=== PATIENT | female | born 1990 | race Caucasian/White ===

== ENCOUNTER 2021-09-26 15:06 | Emergency (ER) | payer MEDICAID ==
[~2021-09-26] VITALS: Ht 172.7 cm; Wt 90.7 kg
[2021-09-26 15:30] VITALS: BP_SYST 123
--- NOTE | 2021-09-26 15:40 | NUR ---
Placed in room 7 . Placed on security monitor, blood pressure machine and pulse oximeter. To gown for exam. Side rails up.
--- NOTE | 2021-09-26 15:45 | NUR ---
PT CAME IN C/O FEELING FAINT, DIZZY AND SOB WHILE DRIVING AROUND 1400. PT STATES THAT 2 WEEKS SHE WAS HOSPITALIZED AFTER HAVING A D&C AND HAD LOST A LOT OF BLOOD AFTER HAVING A MISCARRIAGE. REPORTS THAT HER HGB WAS 6.6 WHILE THERE. PT ALSO C/O R SIDED HENAO, JAW/THROAT/EAR PAIN. REPORTS STILL HAVING SPOTTING OVER THE LAST WEEK. PT IS AMBULATORY, [id number], VSS
--- NOTE | 2021-09-26 16:05 | NUR ---
ER DR. DORAN AT THE BEDSIDE EXAMINING PT
--- NOTE | 2021-09-26 16:27 | NUR ---
LAB AT THE BEDSIDE FOR BLOOD DRAW
[2021-09-26 16:35] LABS: BASOPHILS # (AUTO) 0.1 K/uL (0.0-0.2); BASOPHILS % (AUTO) 1.1 % (0.0-2.0); EOSINOPHILS # (AUTO) 0.2 K/uL (0.0-0.4); EOSINOPHILS % (AUTO) 3.3 % (0.0-4.0); HEMATOCRIT 25.4 % (36-48); HEMOGLOBIN 8.7 g/dL (12.0-16.0); LYMPHOCYTES # (AUTO) 1.5 K/uL (1.0-5.5); LYMPHOCYTES % (AUTO) 22.4 % (20.5-51.5); MEAN CORPUSCULAR HEMOGLOBIN 31 pg (27-31); MEAN CORPUSCULAR HGB CONC 34 % (32-36); MEAN CORPUSCULAR VOLUME 91 fL (79.0-98.0); MONOCYTES # (AUTO) 0.3 K/uL (0.0-1.0); MONOCYTES % (AUTO) 4.7 % (1.7-9.3); NEUTROPHILS # (AUTO) 4.5 K/uL (1.8-7.7); NEUTROPHILS % (AUTO) 68.5 % (40.0-70.0); PLATELET COUNT (AUTO) 257 K/uL (130-430); RED BLOOD CELL COUNT(AUTO) 2.81 MIL/uL (4.2-6.2); RED CELL DISTRIBUTION WIDTH 14.5 % (9.0-15.0); WHITE BLOOD COUNT (AUTO) 6.6 K/uL (4.8-10.8)
[2021-09-26 16:54] LABS: CALCIUM 7.8 mg/dL (8.4-11.0); CREATININE 0.93 mg/dL (0.55-1.30); POTASSIUM 3.8 mmol/L (3.5-5.1)
[2021-09-26 16:59] LABS: ALBUMIN 3.2 g/dL (3.4-4.8)
[2021-09-26 17:36] LABS: TOTAL BILIRUBIN 0.3 mg/dL (0.0-1.0)
[2021-09-26 18:07] VITALS: BP_SYST 121
--- NOTE | 2021-09-26 18:08 | NUR ---
Patient given written and verbal discharge instructions and verbalizes understanding. ER MD discussed with patient the results and treatment provided. Patient in stable condition. ID arm band removed. NO Rx given. Patient educated on pain management and to follow up with PMD. Pain Scale 0/10. Opportunity for questions provided and answered. Medication side effect fact sheet provided.
== END 2021-09-26 18:08 | disposition home or self-care (01) ==
LOC: SED 15:06
DX: D64.9 Anemia, unspecified (principal); R55 Syncope and collapse
CPT/HCPCS: 36415; 80053; 81002; 81025; 85025; 93005; 99284